=== PATIENT | male | born 1980 | race Caucasian/White ===

== ENCOUNTER 2024-05-13 16:13 | Emergency (ER) | payer OTHER, SELFPAY ==
[2024-05-13] VITALS (22 sets, daily range): BP systolic 142–180; BP diastolic 76–133; PULSE 79–99; TEMP 37.1; O2SAT 96; BMI 36.5
--- NOTE | 2024-05-13 16:31 | ECG_ITS ---
The 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
--- NOTE | 2024-05-13 16:31 | XR_ITS ---
The [address] [address] Patient Name: AYDEE MCGUIRE MRN: [id number] date: 1980 Sex: M Assigned Patient Location: ER Current Patient Location: ER Accession/Order Number: [id number] Exam Date: 05/13/2024 16:48 Report Date: 05/13/2024 17:29 At the request of: PILAR FLORES Procedure: XR chest 1V ONE-VIEW CHEST RADIOGRAPH, 05/13/2024 4:48 PM EDT COMPARISON: Chest, 08/10/2019 CLINICAL HISTORY: HTN, SOB FINDINGS: No acute cardiopulmonary disease. No pulmonary edema, pneumothorax, or pleural effusion. Normal heart size. No acute osseous abnormality. XR/XR chest 1V IMPRESSION: No acute abnormality identified. Electronically authenticated by: Hi CHAVARRIA Date: 05/13/2024 17:29
[2024-05-13] MEDS: 0.9 % SODIUM CHLORIDE 1,000 ML 500 ML IV (17:05)
[2024-05-13] MEDS: HYDRALAZINE HCL 20 MG/ML VIAL 10 MG IVP (17:05)
[2024-05-13 17:17] LABS: Basophils Percent Auto 0.5 % (0.2-2.0); Eosinophils Absolute Auto 0.2 10^3/uL (0.0-0.7); Eosinophils Percent Auto 2.3 % (0.9-7.0); Hematocrit 41.5 % (42.0-54.0); Hemoglobin 14.4 g/dL (14.0-18.0); Immature Granulocytes Abs Auto 0.02 10^3/uL (0.00-0.03); Immature Granulocytes Pct Auto 0.3 % (0.0-0.5); Lymphocytes Absolute Auto 1.7 10^3/uL (1.2-3.8); Lymphocytes Percent Auto 21.8 % (20.5-60.0); Mean Corpuscular HGB Conc 34.7 g/dL (29.9-35.2); Mean Corpuscular Hemoglobin 30.3 pg (25.9-34.0); Mean Corpuscular Volume 87.2 fL (80.0-94.0); Mean Platelet Volume 11.8 fL (9.5-13.5); Monocytes Absolute Auto 0.8 10^3/uL (0.3-0.8); Monocytes Percent Auto 9.9 % (1.7-12.0); Neutrophils Absolute Auto 5.1 10^3/uL (1.4-6.5); Neutrophils Percent Auto 65.2 % (43.0-75.0); Platelet Count 194 10^3/uL (150-450); Red Blood Count 4.76 10^6/uL (4.70-6.10); Red Cell Distribution Width 13.3 % (11.0-15.0); White Blood Count 7.8 10^3/uL (4.0-11.0)
[2024-05-13 17:31] LABS: Alanine Aminotransferase 47 U/L (16-63); Albumin Globulin Ratio 1.1; Albumin Level 4.2 g/dL (3.4-5.0); Alkaline Phosphatase 84 U/L (46-116); Anion Gap 11.4; Aspartate Amino Transferase 27 U/L (15-37); BUN Creatinine Ratio 20.2; Bilirubin Total 0.8 mg/dL (0.2-1.0); Calcium 9.2 mg/dL (8.5-10.1); Carbon Dioxide 28.8 mmol/L (21.0-32.0); Chloride 100 mmol/L (98-107); Estimated GFR (African America >60 (>=60); Estimated GFR (Non-African Ame >60 (>=60); Globulin 3.7 g/dL; Glucose 97 mg/dL (74-106); Potassium 3.2 mmol/L (3.5-5.1); Sodium 137 mmol/L (136-145); Total Protein 7.9 g/dL (6.4-8.2)
[2024-05-13 17:38] LABS: Troponin I High Sensitivity 6.1 pg/mL (4.0-76.1)
--- NOTE | 2024-05-13 17:51 | ED.GENADUL1 ---
HPI HPI - General Adult General Chief complaint: Recheck/Abnormal Lab/Rx Stated complaint: Hypertension Time Seen by Provider: 05/13/24 16:21 Source: patient Mode of arrival: walk-in History of Present Illness HPI narrative: 43 year old male presents to the ED for HTN. States his BP has been elevated at home for the past 3 days. Reports diaphoresis at home. Reports a mild CRAIG. Denies fever, chills, vision changes, dizziness. Denies CP, cough. Reports mild SOB. Denies edema, N/V/D, abd pain. He takes HCTZ for his BP. Related Data Home Medications ?Medication ?Instructions ?Recorded ?Confirmed hydrochlorothiazide 25 mg tablet 25 mg PO DAILY 05/13/24 05/13/24 Previous Rx's ?Medication ?Instructions ?Recorded metoprolol tartrate 25 mg tablet 25 mg PO DAILY #30 tabs 05/13/24 Allergies Allergy/AdvReac Type Severity Reaction Status Date / Time No Known Drug Allergies Allergy Verified 05/13/24 16:25 Opioid HPI Opioid Management Most Recent Opioid Data: No Data to Display Review of Systems ROS Constitutional Denies: fever, chills or fatigue Ears, nose, mouth, and throat Denies: throat pain or neck pain Cardiovascular Denies: chest pain, palpitations, edema, swelling of feet/ankles, lightheadedness or shortness of breath when lying down Respiratory Reports: shortness of breath; Denies: cough or wheezing Gastrointestinal Denies: abdominal pain, nausea, vomiting or diarrhea Integumentary/Breast Denies: rash Neurological Denies: headache, numbness in extremities, weakness in extremities, dizziness or confusion Exam Constitutional Vital Signs, click to edit/add: Last Vital Signs Temp 98.7 F 05/13/24 16:18 Pulse 86 05/13/24 18:46 Resp 20 05/13/24 18:46 BP 147/82 H 05/13/24 18:46 Pulse Ox 96 05/13/24 16:21 O2 Del Method Room Air 05/13/24 16:18 Common normals: no apparent distress and oriented x3 General appearance: cooperative Eye Common normals: PERRL, EOMs intact bilaterally, conjunctivae normal and no scleral icterus Neck & C-Spine Common normals: supple Chest Chest: symmetrical chest wall rise Respiratory Common normals: normal respiratory effort and clear to auscultation bilaterally Effort & inspection: able to speak in complete sentences Cardio Common normals: regular rate and regular rhythm Extremity General: no edema Neuro Common normals: oriented x3 Sensorium/orientation: awake and alert Course Vital Signs Vital signs: Vital Signs Temperature 98.7 F 05/13/24 16:18 Pulse Rate 99 H 05/13/24 16:18 Respiratory Rate 18 05/13/24 16:18 Blood Pressure 164/98 H 05/13/24 16:18 Pulse Oximetry 96 05/13/24 16:18 Oxygen Delivery Method Room Air 05/13/24 16:18 Temperature 98.7 F 05/13/24 16:18 Pulse Rate 86 05/13/24 18:46 Respiratory Rate 20 05/13/24 18:46 Blood Pressure 147/82 H 05/13/24 18:46 Pulse Oximetry 96 05/13/24 16:21 Oxygen Delivery Method Room Air 05/13/24 16:18 Medical Decision Making MDM Narrative Medical decision making narrative: Potassium was 3.2 which was replaced. He was given Hydralazine and Lopressor with improvement in his BP. A prescription was provided for metoprolol. Follow up with pcp for a recheck, further evaluation and treatment. He reported he is unable to get in to see his pcp until June. Medical Records Medical records reviewed: Yes I reviewed the patient's medical records Lab Data Lab results reviewed: Yes I reviewed the patient's lab results Labs: Lab Results 05/13/24 Range/Units 17:00 WBC 7.8 (4.0-11.0) 10^3/uL RBC 4.76 (4.70-6.10) 10^6/uL Hgb 14.4 (14.0-18.0) g/dL Hct 41.5 L (42.0-54.0) % MCV 87.2 (80.0-94.0) fL MCH 30.3 (25.9-34.0) pg MCHC 34.7 (29.9-35.2) g/dL RDW 13.3 (11.0-15.0) % Plt Count 194 (150-450) 10^3/uL MPV 11.8 (9.5-13.5) fL Neut % (Auto) 65.2 (43.0-75.0) % Lymph % (Auto) 21.8 (20.5-60.0) % Esmeralda % (Auto) 9.9 (1.7-12.0) % Eos % (Auto) 2.3 (0.9-7.0) % Baso % (Auto) 0.5 (0.2-2.0) % Neut # (Auto) 5.1 (1.4-6.5) 10^3/uL Lymph # (Auto) 1.7 (1.2-3.8) 10^3/uL Esmeralda # (Auto) 0.8 (0.3-0.8) 10^3/uL Eos # (Auto) 0.2 (0.0-0.7) 10^3/uL Baso # (Auto) 0.0 (0.0-0.1) 10^3/uL Abs Immat Gran (auto) 0.02 (0.00-0.03) 10^3/uL Imm/Tot Granulo (auto) 0.3 (0.0-0.5) % Sodium 137 (136-145) mmol/L Potassium 3.2 L (3.5-5.1) mmol/L Chloride 100 (98-107) mmol/L Carbon Dioxide 28.8 (21.0-32.0) mmol/L Anion Gap 11.4 BUN 21.0 H (7.0-18.0) mg/dL Creatinine 1.04 (0.70-1.30) mg/dL Est GFR ( Amer) >60 (>=60) Est GFR (Non-Af Amer) >60 (>=60) BUN/Creatinine Ratio 20.2 Glucose 97 (74-106) mg/dL Calcium 9.2 (8.5-10.1) mg/dL Total Bilirubin 0.8 (0.2-1.0) mg/dL AST 27 (15-37) U/L ALT 47 (16-63) U/L Alkaline Phosphatase 84 (46-116) U/L Troponin I High Sens 6.1 (4.0-76.1) pg/mL NT-Pro-B Natriuret Pep 34.0 (<=450.0) pg/mL Total Protein 7.9 (6.4-8.2) g/dL Albumin 4.2 (3.4-5.0) g/dL Globulin 3.7 g/dL Albumin/Globulin Ratio 1.1 Imaging Data Chest x-ray: Attestation: I have reviewed the pertinent imaging results. Radiologist's impression: ITS Impressions Chest X-Ray 05/13/24 16:31 IMPRESSION: No acute abnormality identified. Electronically authenticated by: Hi CHAVARRIA Date: 05/13/2024 17:29 ECG Data Attestation: ?I have reviewed the pertinent ECG results. (EKG was reviewed by the attending physician. It showed sinus rhythm at a rate of [address] segment changes. Incomlete RBBB) Interpretation: Measurements Intervals [place] Rate: 91 P: 46 [place]: 164 QRS: 53 QRSD: 96 T: 65 QT: 364 QTc: 413 Interpretive Statements 1100 Sinus rhythm 2440 Incomplete right bundle branch block 4068 Nonspecific Twave abnormality 9130 borderline ECG No previous ECG available for comparison Critical Care Time Critical Care Time Critical Care Time: Yes Total Critical Care Time: 32 Attestation: Due to the high probability of sudden and clinically significant deterioration in the patient's condition he required the highest level of my preparedness to intervene urgently I provided critical care time including documentation time, medication orders and management, reevaluation, vital sign assessment, ordering and reviewing of lab tests, and ordering and reviewing of x-ray studies. Discharge Plan Discharge Stand Alone Forms: Portal Instructions Chief Complaint: Recheck/Abnormal Lab/Rx Clinical Impression: Hypertension Patient Disposition: Home, Self-Care Time of Disposition Decision: 18:49 Condition: Good Mode of Transportation: Private Vehicle Prescriptions / Home Meds: New metoprolol tartrate 25 mg tablet 25 mg PO DAILY Qty: 30 0RF No Action hydrochlorothiazide 25 mg tablet 25 mg PO DAILY Print Language: Mongolian Instructions: Hypertension (ED) Additional Instructions: Return to the ER for new or worsening symptoms. Referrals: Physician,Non-Staff, MD [Primary Care Provider] - 1 week Discharge Date/Time: 05/13/24 18:59
[2024-05-13] MEDS: POTASSIUM CHLORIDE 10 MEQ ER TABLET 40 MEQ PO (18:15)
[2024-05-13] MEDS: METOPROLOL TARTRATE 5 MG/5 ML VIAL IVP (18:15)
== END 2024-05-13 18:59 | disposition home or self-care (01) ==
PROVIDERS: Nurse Practitioner Family; Emergency Provider Emergency Medicine
DX: I10 Essential (primary) hypertension (principal); Z79.899 Other long term (current) drug therapy
CPT/HCPCS: 36415; 71045; 80053; 83880; 84484; 85025; 93005; 96374; 96375; 99285; J0360